=== PATIENT | female | born 1950 | race Asian ===

== ENCOUNTER → 2016-08-05 | Outpatient (CLI) | payer MEDICARE | END | disposition home or self-care (01) | LOC: CFH 13:45 | PROVIDERS: ATTEND Allergy & Immunology | DX: J01.00 Acute maxillary sinusitis, unspecified (principal) | CPT/HCPCS: 70210 ==

== ENCOUNTER 2016-08-21 14:48 | Emergency (ER) | payer MEDICARE ==
[~2016-08-21] VITALS: Ht 162.6 cm; Wt 55.0 kg
[2016-08-21 14:51] VITALS: BP 162/80
[2016-08-21] MEDS ORDERED: LANS15CA45 PO (15:56)
[2016-08-21] MEDS ORDERED: RANI150T8 PO (15:56)
== END 2016-08-21 17:32 ==
LOC: ED 16:39
DX: R05 Cough (principal); R09.81 Nasal congestion; K21.9 Gastro-esophageal reflux disease without esophagitis; K75.9 Inflammatory liver disease, unspecified; Z90.49 Acquired absence of other specified parts of digestive tract; Z88.6 Allergy status to analgesic agent
CPT/HCPCS: 71020; 99284

== ENCOUNTER → 2016-08-31 | Outpatient (CLI) | payer MEDICARE ==
[~2016-08-31] MED LIST: LANS15CA45 PO; RANI150T8 PO
== END | disposition home or self-care (01) ==
LOC: CFH 07:22
PROVIDERS: ATTEND Physician Assistant Medical
DX: R05 Cough (principal); I10 Essential (primary) hypertension; J01.90 Acute sinusitis, unspecified
CPT/HCPCS: 74220

== ENCOUNTER → 2016-09-06 | Outpatient (CLI) | payer MEDICARE | END | disposition home or self-care (01) | LOC: CFH 12:20 | PROVIDERS: ATTEND Allergy & Immunology | DX: J01.00 Acute maxillary sinusitis, unspecified (principal) | CPT/HCPCS: 70210 ==

== ENCOUNTER → 2016-10-05 | Outpatient (CLI) | payer MEDICARE | END | disposition home or self-care (01) | LOC: CFH 15:02 | PROVIDERS: ATTEND Otolaryngology | DX: J32.0 Chronic maxillary sinusitis (principal); J32.2 Chronic ethmoidal sinusitis | CPT/HCPCS: 70486 ==